=== PATIENT | male | born 1975 | race Caucasian/White ===

== ENCOUNTER 2018-04-14 14:40 | Emergency (ER) | payer OTHER, MEDICAID ==
[~2018-04-14] VITALS: Ht 180.3 cm; Wt 111.5 kg
[~2018-04-14 14:40] MED LIST: IBUP-2029 PO; ONDA4TAB5 PO
[2018-04-14] MEDS ORDERED: ADVIL (15:45)
[2018-04-14] MEDS ORDERED: KETOROLAC 15MG/ML VIAL IM ONE (16:15)
[2018-04-14 17:02] VITALS: BP 151/101
== END 2018-04-14 16:43 | disposition home or self-care (01) ==
LOC: ER 14:40
DX: M54.42 Lumbago with sciatica, left side (principal); F12.10 Cannabis abuse, uncomplicated; F17.200 Nicotine dependence, unspecified, uncomplicated; Z98.890 Other specified postprocedural states; Z79.899 Other long term (current) drug therapy
CPT/HCPCS: 96372; 99283; J1885

== ENCOUNTER 2018-04-17 22:48 | Emergency (ER) | payer OTHER, MEDICAID ==
[~2018-04-17] VITALS: Ht 180.3 cm; Wt 110.0 kg
[~2018-04-17 22:48] MED LIST changes: +ADVIL; -IBUP-2029 PO; -ONDA4TAB5 PO
[2018-04-18] MEDS ORDERED: HYDROCODONE/ACETAMINOPHEN 5/325MG TABLET PO ONE (01:30)
[2018-04-18] MEDS ORDERED: IBUPROFEN 600MG TABLET PO ONE (01:30)
[2018-04-18 02:30] VITALS: BP 134/90
== END 2018-04-18 02:30 | disposition home or self-care (01) ==
LOC: ER 22:48
DX: M54.32 Sciatica, left side (principal); Z98.890 Other specified postprocedural states
CPT/HCPCS: 99283

== ENCOUNTER 2019-12-18 15:30 | Emergency (ER) | payer MEDICAID, OTHER ==
[~2019-12-18] VITALS: Ht 180.3 cm; Wt 107.0 kg
[2019-12-18] MEDS ORDERED: KETOROLAC 60MG/2ML VIAL IM ONE (18:15)
[2019-12-18 18:38] VITALS: BP 141/90
== END 2019-12-18 18:39 | disposition left against medical advice (07) ==
LOC: ER 15:30
DX: G89.29 Other chronic pain (principal); M54.9 Dorsalgia, unspecified; Z98.890 Other specified postprocedural states; Z76.0 Encounter for issue of repeat prescription
CPT/HCPCS: 96372; 99283; J1885